=== PATIENT | female | born 1980 | race American Indian/Alaskan Native ===

== ENCOUNTER 2016-09-06 10:29 | Emergency (ER) | payer OTHER, MEDICAID ==
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
[2016-09-06] MEDS ORDERED: Sodium Chloride 0.9% 10 ML Syringe FLUSH PRN (10:42)
[2016-09-06] MEDS ORDERED: Iopamidol 612 MG/ML 75 ML Bottle IVPUSH ONE (10:43)
[2016-09-06] MEDS ORDERED: Iopamidol 612 MG/ML 50 ML SDV IVPUSH ONE (10:43)
[2016-09-06 11:15] LABS: CHLORIDE,CL 102 mmol/L (101-111); SODIUM,NA 136 mmol/L (135-145)
[2016-09-06] MEDS ORDERED: HYDROmorphone 1 MG/ML Syringe IVPUSH ONE (11:21)
[2016-09-06] MEDS ORDERED: Ondansetron 4 MG/2 ML SDV IV ONE ×2 (11:21→11:44)
[2016-09-06] MEDS ORDERED: Ketorolac 30 MG/ML SDV IVPUSH ONE (11:44)
== END 2016-09-06 12:18 | disposition home or self-care (01) ==
LOC: DL.ED 10:29
DX: S06.0X9A Concussion with loss of consciousness of unspecified duration, initial encounter (principal); S22.000A Wedge compression fracture of unspecified thoracic vertebra, initial encounter for closed fracture; S20.219A Contusion of unspecified front wall of thorax, initial encounter; S60.221A Contusion of right hand, initial encounter; S60.812A Abrasion of left wrist, initial encounter; S60.811A Abrasion of right wrist, initial encounter; V89.2XXA Person injured in unspecified motor-vehicle accident, traffic, initial encounter; Z79.4 Long term (current) use of insulin; E11.9 Type 2 diabetes mellitus without complications; Z87.891 Personal history of nicotine dependence
CPT/HCPCS: 36415; 70450; 71260; 72125; 74177; 80053; 80305; 81001; 81025; 82150; 83690; 85025; 85610; 85730; 96374; 96375; 96376; 99285; G0480; J1170; J1885; J2405; Q9967